=== PATIENT | female | born 1940 | race Caucasian/White ===

== ENCOUNTER → 2017-10-22 | Outpatient (CLI) | payer MEDICARE ==
--- NOTE | 2017-10-22 16:09 | RAD ---
Lumbar spine, 3 views, 10/22/2017: History: Back and hip pain There has been an extensive lumbar spinal fusion with multiple fixation rods and screws in place. The upper most visible pedicle screws lie at the T11 and T12 levels. Lower fixation screws extend into the sacrum and appear to traverse the sacroiliac joints bilaterally. The bilateral longitudinally oriented fixation rods demonstrate yani fractures at the L5-S1 level, as best seen in the lateral projection. Bilateral bone graft is present in the lumbar spine. There is an underlying lumbar laminectomy, best seen inferiorly. There is a mild L1 vertebral compression fracture of indeterminate age. There are moderate scattered marginal spurs. Aortic calcific plaquing is present. IMPRESSION: 1. Extensive postsurgical change with extensive fixation rods and screws in place as described above. 2. There are fractures of the longitudinal fixation rods at the L5-S1 level. 3. Mild L1 vertebral compression fracture of indeterminate age.
--- NOTE | 2017-10-22 16:11 | RAD ---
Pelvis with right hip, 3 views, 10/22/2017: History: Low back and right hip pain Surgical fixation implants in the lumbar spine extend into the sacrum and upper pelvis as described on the lumbar spine radiographs. There is mild narrowing of both hip joints with mild marginal spurring. No acute fracture or dislocation is identified. IMPRESSION: 1. Lumbar surgical fixation devices extend into the upper sacrum and across both sacroiliac joints. 2. Mild degenerative change at both hip joints.
== END | disposition home or self-care (01) ==
LOC: DXRAD 15:38
PROVIDERS: ATTEND Family Medicine
DX: M48.56XA Collapsed vertebra, not elsewhere classified, lumbar region, initial encounter for fracture (principal); M16.0 Bilateral primary osteoarthritis of hip; Z98.890 Other specified postprocedural states; Z98.1 Arthrodesis status
CPT/HCPCS: 72100; 73502

== ENCOUNTER 2021-06-30 11:29 | Emergency (ER) | payer MEDICARE ==
[~2021-06-30] VITALS: Ht 162.6 cm; Wt 95.6 kg
[~2021-06-30 11:29] MED LIST: CYCL10TA19 PO; METH4TAB2 PO
[2021-06-30] MEDS ORDERED: DEXAMETHASONE SOD PHOS 10 MG/ML VIAL. IVP ONE (12:15)
[2021-06-30] MEDS ORDERED: IV NORMAL SALINE 1,000ML 1,000 ML IV SCH (12:15)
--- NOTE | 2021-06-30 12:29 | RAD ---
EXAM: Chest, single view. HISTORY: Shortness of breath. COMPARISON: None. FINDINGS: A frontal view of the chest is obtained. There is multifocal interstitial and alveolar infi ltrate. There are suspected trace pleural effusions. There is cardiomegaly. There is no pneumothorax. There is thoracolumbar fusion instrumentation. IMPRESSION: Focal interstitial and alveolar infiltrate with suspected trace pleural effusions and car diomegaly. Electronically signed by: Florina Larose MD (06/30/2021 12:27 PM) [id number]
[2021-06-30 12:31] LABS: BASO # 0.1 x10^3/uL (0.0-0.2); BASO % 1 % (0-3); EOS % 0 % (0-3); HEMATOCRIT 38.2 % (36.0-47.0); HEMOGLOBIN 12.2 g/dL (12.0-15.5); LYMPH % 6 % (24-48); MEAN CORPUSCULAR HEMOGLOBIN 29 pg (25-35); MEAN CORPUSCULAR HGB CONC 32 g/dL (31-37); MEAN CORPUSCULAR VOLUME 89 fL (79-100); MONO # 0.7 x10^3/uL (0.0-1.1); MONO % 4 % (0-9); NEUT % 89 % (31-73); PLATELET COUNT 553 x10^3/uL (140-400); RED CELL DISTRIBUTION WIDTH 16.1 % (11.5-14.5); WHITE BLOOD COUNT 16.9 x10^3/uL (4.0-11.0)
--- NOTE | 2021-06-30 12:32 | PHYS DOC ---
Past History Past Medical History: COPD, Diabetes (ANTOINETTE MCNEAL APRN) Past Surgical History: Cholecystectomy, Knee Replacement, Other Additional Past Surgical Histo: back (ANTOINETTE MCNEAL APRN) Alcohol Use: None Drug Use: None (ANTOINETTE MCNEAL APRN) General Adult EDM: Chief Complaint: SHORTNESS OF BREATH HPI: HPI: Patient is an 80-year-old female who presents to the emergency department for shortness of breath that started 5 days ago. Patient was diagnosed with COVID- 19 2 weeks ago. She reports worsening of her shortness of breath and cough. She denies any chest pain, n/v or fevers. Patient has a history of COPD. She does not wear oxygen at home. Patient is noted to be tachycardic and hypoxic in the emergency department and is requiring supplemental oxygen. Patient had to be titrated up to CPAP. (ANTOINETTE MCNEAL APRN) Review of Systems: Review of Systems: Constitutional: See HPI Respiratory: See HPI Cardiovascular: See HPI GI: See hpi (ANTOINETTE MCNEAL APRN) Current Medications: Current Meds: Current Medications Medications (Trade) Dose Ordered Sig/Marry Start Time Stop Time Status Last Admin Dose Admin Dexamethasone Sodium Phosphate (Decadron) 10 mg 1X ONCE 06/30/21 12:15 06/30/21 12:16 DC 06/30/21 12:24 10 MG Sodium Chloride 1,000 ml @ 1,000 mls/hr Q1H 06/30/21 12:15 06/30/21 13:14 06/30/21 12:24 1,000 MLS/HR (ANTOINETTE MCNEAL APRN) Allergies: Allergies: Allergies Coded Allergies Type Severity Reaction Last Updated Verified Sulfa (Sulfonamide Antibiotics) Allergy Intermediate 04/13/18 Yes clindamycin Allergy Unknown 06/30/21 Yes Uncoded Allergies Type Severity Reaction Last Updated Verified OPIATES Allergy Unknown 06/30/21 (ANTOINETTE MCNEAL APRN) Physical Exam: PE: Constitutional: Well developed, well nourished, no acute distress, non-toxic appearance. [] HENT: Normocephalic, atraumatic, bilateral external ears normal, oropharynx moist, no oral exudates, nose normal. [] Eyes: PERRL, EOMI, conjunctiva normal, no discharge. [] Neck: Normal range of motion, no stridor Cardiovascular:Heart rate tachycardic rhythm, no murmur [] Lungs & Thorax: Bilateral breath sounds clear to auscultation, hypoxia, tachypneic[] Abdomen: Bowel sounds normal, soft, no tenderness, no masses, no pulsatile masses. [] Skin: Warm, dry, no erythema, no rash. [] Back: normal rom Extremities: No tenderness, no cyanosis, no clubbing, ROM intact, no edema. [] Neurologic: Alert and oriented X 3, normal motor function, normal sensory function, no focal deficits noted. [] Psychologic: Affect normal, judgement normal, mood normal. [] (ANTOINETTE MCNEAL APRN) Current Patient Data: Labs: Laboratory Tests Test 06/30/21 11:54 06/30/21 12:28 White Blood Count 16.9 x10^3/uL Red Blood Count 4.30 x10^6/uL Hemoglobin 12.2 g/dL Hematocrit 38.2 % Mean Corpuscular Volume 89 fL Mean Corpuscular Hemoglobin 29 pg Mean Corpuscular Hemoglobin Concent 32 g/dL Red Cell Distribution Width 16.1 % Platelet Count 553 x10^3/uL Neutrophils (%) (Auto) 89 % Lymphocytes (%) (Auto) 6 % Monocytes (%) (Auto) 4 % Eosinophils (%) (Auto) 0 % Basophils (%) (Auto) 1 % Neutrophils # (Auto) 15.0 x10^3uL Lymphocytes # (Auto) 1.0 x10^3/uL Monocytes # (Auto) 0.7 x10^3/uL Eosinophils # (Auto) 0.0 x10^3/uL Basophils # (Auto) 0.1 x10^3/uL Segmented Neutrophils % 89 % Band Neutrophils % 3 % Lymphocytes % 4 % Monocytes % 4 % Platelet Estimate Increased D-Dimer (Angelique) 11.78 mg/L Bedside Venous pH 7.35 Bedside Venous pCO2 42 mmHg Bedside Venous pO2 26 mmHg Venous Blood HCO3 23 mmol/L POC Venous O2 Saturation (Cara) 45 % Bedside FiO2 100 Sodium Level 135 mmol/L Potassium Level 4.3 mmol/L Chloride Level 93 mmol/L Carbon Dioxide Level 22 mmol/L Anion Gap 20 Blood Urea Nitrogen 26 mg/dL Creatinine 1.6 mg/dL Estimated GFR (Cockcroft-Gault) 30.9 BUN/Creatinine Ratio 16 Glucose Level 243 mg/dL Calcium Level 9.2 mg/dL Total Bilirubin 0.7 mg/dL Aspartate Amino Transf (AST/SGOT) 40 U/L Alanine Aminotransferase (ALT/SGPT) 40 U/L Alkaline Phosphatase 117 U/L Troponin I High Sensitivity 14 ng/L Total Protein 8.5 g/dL Albumin 2.6 g/dL Albumin/Globulin Ratio 0.4 Influenza Type A (Rapid) Negative Influenza Type B (Rapid) Negative SARS-CoV-2 Antigen (Rapid) Negative Current Medications Medications (Trade) Dose Ordered Sig/Marry Route PRN Reason Start Time Stop Time Status Last Admin Dose Admin Sodium Chloride 1,000 ml @ 1,000 mls/hr Q1H IV 06/30/21 12:15 06/30/21 13:14 DC 06/30/21 12:24 Dexamethasone Sodium Phosphate (Decadron) 10 mg 1X ONCE IVP 06/30/21 12:15 06/30/21 12:16 DC 06/30/21 12:24 Iohexol (Omnipaque 350 Mg/ml) 100 ml 1X ONCE IV 06/30/21 13:15 06/30/21 13:16 DC Iohexol (Omnipaque 300 Mg/ml) 75 ml 1X ONCE IV 06/30/21 13:30 06/30/21 13:31 DC Vital Signs: Vital Signs Date Time Temp Pulse Resp B/P (MAP) Pulse Ox O2 Delivery O2 Flow Rate FiO2 06/30/21 11:30 98.2 115 40 118/86 (97) 63 Room Air (ANTOINETTE MCNEAL APRN) EKG: EKG: EKG performed by ER staff at 1300 shows sinus tachycardia with a heart rate of 120, QTC of 443, no STEMI read by Dr. Ambrocio [] (ANTOINETTE MCNEAL ATHLETIC AGENT) Radiology/Procedures: Radiology/Procedures: []PROCEDURE: PORTABLE CHEST 1V EXAM: Chest, single view. HISTORY: Shortness of breath. COMPARISON: None. FINDINGS: A frontal view of the chest is obtained. There is multifocal interstitial and alveolar infiltrate. There are suspected trace pleural effusions. There is cardiomegaly. There is no pneumothorax. There is thoracolumbar fusion instrumentation. IMPRESSION: Focal interstitial and alveolar infiltrate with suspected trace pleural effusions and cardiomegaly. Electronically signed by: Florina Escobedo MD (06/30/2021 12:27 PM) [id number] REASON: soa, elevated ddimer, COVID PROCEDURE: CT ANGIOGRAPHY CHEST EXAM: CT ANGIOGRAPHY OF THE CHEST WITH AND WITHOUT CONTRAST. HISTORY: Shortness of breath, elevated d-dimer, COVID-19. TECHNIQUE: Computed tomographic angiography of the chest was performed before and after the intravenous administration of iodinated contrast. 3-D maximum intensity projections were also performed. One or more of the following individualized dose reduction techniques were utilized for this examination: 1. Automated exposure control. 2. Adjustment of the mA and/or kV according to patient size. 3. Use of iterative reconstruction technique. COMPARISON: None. FINDINGS: Images of the upper abdomen reveal changes of cholecystectomy. Bone windows reveal no suspicious lesions. There is diffuse thoracolumbar instrumented posterior fusion throughout the [id number]. There is a moderate superior endplate compression deformity at L1, likely chronic. There are multiple pulmonary emboli within the right upper and right lower lobe. There are limitations from respiratory motion artifact, lowering sensitivity, but no additional emboli are seen on the right. There is no aortic dissection or aneurysm. There are no pathologically enlarged mediastinal or axillary lymph nodes. There is no pleural or pericardial effusion. The heart is not enlarged. There are atherosclerotic calcifications of the coronary arteries. Groundglass infiltrates involve the majority of all lobes except the left upper lobe, which is less affected. An uncalcified 3 mm nodule in the left upper lobe is likely benign at this small size. IMPRESSION: 1. Multiple pulmonary emboli on the right. 2. Diffuse bilateral groundglass infiltrates consistent with atypical pneumonia. These findings were called to Antoinette Mcneal by Gene Gardner on 06/30/2021 at 2:18 PM. FOR INTERNAL CODING PURPOSES RESULT CODE: (C) Electronically signed by: Aniyah Gardner MD (06/30/2021 2:21 PM) [id number] DICTATED AND SIGNED BY: EMILIANO GARDNER MD DATE: 06/30/21 1416 CC: KESHAV RAMOS; ANTOINETTE MCNEAL ATHLETIC AGENT ~MTH0 0 DICTATED AND SIGNED BY: FLORINA ESCOBEDO MD DATE: 06/30/21 1226 CC: KESHAV RAMOS; ANTOINETTE MCNEAL ATHLETIC AGENT ~MTH0 0 (ANTOINETTE MCNEAL APRN) Heart Score: C/O Chest Pain: No Risk Factors: Risk Factors: DM, Current or recent (<one month) smoker, HTN, HLP, family history of CAD, obesity. Risk Scores: Score 0 - 3: 2.5% MACE over next 6 weeks - Discharge Home Score 4 - 6: 20.3% MACE over next 6 weeks - Admit for Clinical Observation Score 7 - 10: 72.7% MACE over next 6 weeks - Early Invasive Strategies (ANTOINETTE MCNEAL APRN) Course & Med Decision Making: Course & Med Decision Making Pertinent Labs and Imaging studies reviewed. (See chart for details) [] Patient presents to the emergency department for 5-day history of shortness of breath. Patient is positive for COVID-19.Patient is noted to be tachycardic and hypoxic in the emergency department and is requiring supplemental oxygen. Patient had to be titrated up to CPAP. Work-up in the ER consisted of blood work, urinalysis, EKG, chest x-ray. Chest x-ray shows focal interstitial and a lveolar infiltrate with trace pleural effusions and cardiomegaly. Patient be treated with an antibiotic. Patient was noted to have leukocytosis with a white blood cell count of 16.9. Her BUN was 26 and creatinine was 1.6. We have no lab work to compare it is unsure if this is evidence of acute kidney injury. Patient's D-dimer was elevated at 11.78. Therefore, a CT angio of patient's chest was performed to rule out a pulmonary embolism. Multiple pulmonary emboli noted on the right, heparin protocol for PE treatment ordered. Patient continues to be stable on CPAP at this time. I discussed these findings with Dr. Coronado who agreed to admit the patient under his services at [facility] for Covid pneumonia to the ICU. (ANTOINETTE MCNEAL APRN) Course & Med Decision Making Did not see or evaluate patient. Did not discuss patient with VOICE OVER ARTIST. Agree with VOICE OVER ARTIST's work-up and disposition per note (ADELAIDA AMBROCIO MD) Dragon Disclaimer: Dragon Disclaimer: This electronic medical record was generated, in whole or in part, using a voice recognition dictation system. (ANTOINETTE MCNEAL APRN) Departure Departure: Impression: Primary Impression: Pneumonia due to COVID-19 virus Disposition: 02 SHORT TERM HOSPITAL Condition: GOOD Referrals: KESHAV RAMOS (PCP) ANTOINETTE MCNEAL APRN Jun 30, 2021 12:32 ADELAIDA AMBROCIO MD Jul 03, 2021 18:07
[2021-06-30 12:43] LABS: CALCIUM 9.2 mg/dL (8.5-10.1); CREATININE 1.6 mg/dL (0.6-1.0); GFR 30.9; POTASSIUM 4.3 mmol/L (3.5-5.1)
[2021-06-30 12:49] LABS: ALBUMIN 2.6 g/dL (3.4-5.0); ALBUMIN/GLOBULIN RATIO 0.4 (1.0-1.7); TOTAL BILIRUBIN 0.7 mg/dL (0.2-1.0); TOTAL PROTEIN 8.5 g/dL (6.4-8.2)
[2021-06-30 12:59] LABS: INFLUENZA A PATIENT NEGATIVE (NEGATIVE); INFLUENZA B PATIENT NEGATIVE (NEGATIVE)
[2021-06-30 13:00] LABS: % BANDS 3 % (0-9); % LYMPHS 4 % (24-48); % MONOS 4 % (0-10); % SEGS 89 % (35-66)
[2021-06-30 13:01] LABS: PLT ESTIMATE INCREASED (ADEQUATE)
[2021-06-30] MEDS ORDERED: IOHEXOL 350 MG/ML 100 ML VIAL. IV ONE (13:15)
--- NOTE | 2021-06-30 13:17 | EKG ---
[address] [address] Test Date: 2021-06-30 Test Time: 13:00:54 Pat Name: EPI HAUSER Department: Room: Gender: F Welder Journeyman: KAJAL : 1940 Requested By: ANTOINETTE MCNEAL Order Number: [id number] Reading MD: Measurements Intervals [place] Rate: 120 P: 26 MS: 134 QRS: -24 QRSD: 84 T: 109 QT: 310 QTc: 443 Interpretive Statements SINUS TACHYCARDIA LEFTWARD AXIS R-S TRANSITION ZONE IN V LEADS DISPLACED TO THE LEFT QRS(T) CONTOUR ABNORMALITY CONSISTENT WITH INFERIOR INFARCT PROBABLY OLD ST & T ABNORMALITY, CONSIDER HIGH LATERAL ISCHEMIA OR LEFT VENTRICULAR STRAIN ABNORMAL ECG RI6.02 No previous ECG available for comparison
[2021-06-30] MEDS ORDERED: IOHEXOL 300 MG/ML 75 ML VIAL. IV ONE (13:30)
[2021-06-30] MEDS ORDERED: AZITHROMYCIN 500 MG in IV NORMAL SALINE 250ML 250 ML IV ONE (14:00)
--- NOTE | 2021-06-30 14:24 | RAD ---
EXAM: CT ANGIOGRAPHY OF THE CHEST WITH AND WITHOUT CONTRAST. HISTORY: Shortness of breath, elevated d-dimer, COVID-19. TECHNIQUE: Computed tomographic angiography of the chest was performed before and after the intraveno us administration of iodinated contrast. 3-D maximum intensity projections were also performed. One o r more of the following individualized dose reduction techniques were utilized for this examination: 1. Automated exposure control. 2. Adjustment of the mA and/or kV according to patient size. 3. Use of iterative reconstruction technique. COMPARISON: None. FINDINGS: Images of the upper abdomen reveal changes of cholecystectomy. Bone windows reveal no suspi cious lesions. There is diffuse thoracolumbar instrumented posterior fusion throughout the field-of-v iew. There is a moderate superior endplate compression deformity at L1, likely chronic. There are multiple pulmonary emboli within the right upper and right lower lobe. There are limitation s from respiratory motion artifact, lowering sensitivity, but no additional emboli are seen on the ri ght. There is no aortic dissection or aneurysm. There are no pathologically enlarged mediastinal or axillary lymph nodes. There is no pleural or cuong cardial effusion. The heart is not enlarged. There are atherosclerotic calcifications of the coronary arteries. Groundglass infiltrates involve the majority of all lobes except the left upper lobe, which is less a ffected. An uncalcified 3 mm nodule in the left upper lobe is likely benign at this small size. IMPRESSION: 1. Multiple pulmonary emboli on the right. 2. Diffuse bilateral groundglass infiltrates consistent with atypical pneumonia. These findings were called to Kyra Orozco by Gene Gardner on 06/30/2021 at 2:18 PM. FOR INTERNAL CODING PURPOSES RESULT CODE: (C) Electronically signed by: Aniyah Gardner MD (06/30/2021 2:21 PM) [id number]
[2021-06-30] MEDS ORDERED: HEPARIN for IV BOLUS 10,000 UNIT/10 ML VIAL. IV PRN ×3 (14:30)
[2021-06-30] MEDS ORDERED: HEPARIN 25,000UTS/250ML PREMIX 250 ML IV PRN (14:30)
[2021-06-30] MEDS ORDERED: HEPARIN for IV BOLUS 10,000 UNIT/10 ML VIAL. IV ONE (14:30)
[2021-06-30 14:42] LABS: BILIRUBIN,URINE SMALL (NEG); CLARITY,URINE HAZY; COLOR,URINE YELLOW; GLUCOSE,URINE NEG (NEG); NITRITE,URINE NEG (NEG); UROBILINOGEN,URINE 0.2 mg/dL (0.2 mg/dL)
[2021-06-30 14:43] LABS: BACTERIA,URINE MANY /HPF (0-FEW); SQUAMOUS EPITHELIAL CELL,UR MANY /LPF
[2021-06-30] MEDS ORDERED: AZITHROMYCIN 500 MG VIAL. IV ONE (14:46)
[2021-06-30] MEDS ORDERED: cefTRIAXone SODIUM 1 GM VIAL ONE (14:46)
[2021-06-30] MEDS ORDERED: IV NORMAL SALINE 50ML 50 ML ONE (14:46)
[2021-06-30] MEDS ORDERED: IV NORMAL SALINE 250ML 250 ML ONE (14:46)
[2021-06-30] MEDS ORDERED: MORPHINE SULFATE 2 MG/ML DISP.SYRIN. IV ONE (17:30)
[2021-06-30 20:46] VITALS: BP 144/72
== END 2021-06-30 21:08 | disposition short-term general hospital (02) ==
LOC: ER 11:29
DX: U07.1 COVID-19 (principal); J12.82 Pneumonia due to coronavirus disease 2019; J44.9 Chronic obstructive pulmonary disease, unspecified; E11.9 Type 2 diabetes mellitus without complications; Z88.2 Allergy status to sulfonamides; Z88.1 Allergy status to other antibiotic agents; Z88.8 Allergy status to other drugs, medicaments and biological substances
CPT/HCPCS: 36415; 71045; 71275; 80053; 81001; 82803; 84484; 85007; 85025; 85379; 85610; 85730; 87086; 87426; 87804; 93005; 94660; 96361; 96365; 96366; 96367; 96375; 96376; 99285; J0456; J0696; J1100; J1644; J2270; J7030; J7050; Q9967; U0003